=== PATIENT | female | born 1965 | race Caucasian/White ===

== ENCOUNTER 2016-07-28 09:34 | Outpatient (CLI) | payer OTHER ==
[~2016-07-28 09:34] MED LIST: AMANTADINE100 MG PO; AMBIEN5 MG PO; CELEXA20 MG PO; CLONAZEPAM0.5 MG PO; COLACE100 MG PO; MILK OF MA400 MG/5 M PO; NITROFURANTOIN100 M1 PO; RYTARY; VESICARE5 MG; VICODIN EQUIVAL1 TAB PO; VITAMIN D-35000 UNIT PO
--- NOTE | 2016-07-28 10:39 | DIAGNOSTIC IMAGING REPORT ---
PROCEDURE: US ABDOMEN ULTRASOUND-LIMITED INDICATION: PRIMARY BILIARY CHIRRHOSIS TECHNIQUE: Moe scale and color Doppler sonographic images of the abdomen were obtained without comparison. COMPARISON: Abdominal ultrasound dated 02/07/2015 FINDINGS: The liver demonstrates coarse echo architecture with an echogenic area in the left lower lobe adjacent to the falciform ligament. This measures 1.6 cm in diameter. This could represent a hemangioma. Abdominal CT with contrast is recommended to better evaluate this. The gallbladder is surgically absent. No pericholecystic fluid or Newsome sign. The extrahepatic common duct is normal measuring 6.5 mm The visualized pancreas is normal without ductal dilatation or peripancreatic fluid collection. The abdominal aorta is normal in its course and caliber. The retrohepatic inferior vena cava is patent. There is appropriate hepatopetal flow in the portal vein. The right kidney measures 11.4 cm in length. IMPRESSION: 1. Liver demonstrates coarse echo architecture with a 1.6 cm lesion adjacent to the falciform ligament. 2. Recommend abdominal CT with contrast.
--- NOTE | 2016-07-28 11:28 | DIAGNOSTIC IMAGING REPORT ---
PROCEDURE: MG BILATERAL SCREENING W/CAD INDICATION: Screening. Parkinson's disease. TECHNIQUE: Bilateral CC and MLO digital views. COMPARISON: Compared to 04/04/2014, 02/20/2013, FINDINGS: Computer-aided detection applied. Dense parenchymal pattern with a few dystrophic and scattered micro calcifications. No significant change. Bilateral axillary electronic device is obscure axillary regions (no change). IMPRESSION: 1. Negative mammogram. RESULT CODE: 1- Negative. A. A negative report should not delay biopsy if a dominant or clinically suspicious mass is present. 10-15% of cancers are not identified by x-ray. B. A negative report may reinforce clinical impression. C. Adenosis and dense breasts may obscure an underlying neoplasm. D. False positive reports average 6-10%. E.. A yearly screening mammogram is recommended. A reminder letter will be scheduled.
== END 2016-07-28 23:00 ==
LOC: US SRH 09:34
DX: K76.9 Liver disease, unspecified (principal); Z12.31 Encounter for screening mammogram for malignant neoplasm of breast